=== PATIENT | male | born 1970 | race Caucasian/White ===

== ENCOUNTER 2021-06-01 10:39 | Inpatient (IN) ==
[2021-06-01] MEDS ORDERED: NITROGLYCERIN SL 0.4 MG TABLET SL ONE (10:40)
[2021-06-01] MEDS ORDERED: ONDANSETRON 4 MG/2 ML VIAL ONE (10:40)
[2021-06-01] MEDS ORDERED: MORPHINE 2 MG/1 ML SYRINGE ONE (10:40)
[2021-06-01] MEDS: NITROGLYCERIN SL 0.4 MG TABLET SL PRN ×2 (10:42→11:01)
[2021-06-01] MEDS ORDERED: HEPARIN 5,000 UNIT/1 ML VIAL ONE ×3 (10:43→11:22)
[2021-06-01] MEDS ORDERED: ONDANSETRON 4 MG/2 ML VIAL IV STA (10:51)
[2021-06-01] MEDS ORDERED: HEPARIN 5,000 UNIT/1 ML VIAL IV ONE (10:51)
[2021-06-01] MEDS ORDERED: LIDOCAINE 1% 20 ML VIAL ONE (10:59)
[2021-06-01] MEDS ORDERED: HEPARIN/NACL 0.9% 2 UNITS/ML 3,000 UNIT/1,500 ML BAG IV ONE (10:59)
[2021-06-01] MEDS ORDERED: MIDAZOLAM 2 MG/2 ML VIAL ONE (10:59)
[2021-06-01] MEDS ORDERED: fentaNYL 100 MCG/2 ML VIAL ONE (11:00)
[2021-06-01] MEDS ORDERED: TICAGRELOR 90 MG TABLET PO ONE (11:00)
[2021-06-01] MEDS ORDERED: DOCUSATE SODIUM 100 MG CAPSULE PO PRN (11:03)
[2021-06-01] MEDS ORDERED: NITROGLYCERIN DRIP 50 MG/250 ML BOTTLE IV ONE (11:03)
[2021-06-01] MEDS ORDERED: ALUMINUM/MAGNES/SIMETH MAX STR 30 ML UDCUP PO PRN (11:03)
[2021-06-01] MEDS ORDERED: MORPHINE 2 MG/1 ML SYRINGE IV PRN (11:03)
[2021-06-01] MEDS ORDERED: ACETAMINOPHEN 325 MG TABLET PO PRN (11:03)
[2021-06-01] MEDS ORDERED: ONDANSETRON 4 MG/2 ML VIAL IV PRN (11:03)
[2021-06-01 11:05] LABS: Basophils % 0.3 % (0.0-0.8); Eosinophils % 0.1 % (0.00-10.9); Hematocrit 46.3 VOL% (42.0-52.0); Hemoglobin 15.8 GM/DL (14.0-18.0); Immature Granulocytes % 0.5 %; Immature Granulocytes Absolute 0.05 #; Lymphocytes # 0.8 10*3/uL (1.4-4.0); Lymphocytes % 7.5 % (21.2-54.2); Mean Corpuscular HGB Conc 34.1 GM/DL (32-36); Mean Corpuscular Volume 84.2 FL (87-102); Mean Platelet Volume 10.8 FL (9.6-12.0); Monocytes % 6.5 % (1.7-12.7); Neutrophils % 85.1 % (38.7-73.9); Platelet Count 237 T/CUMM (130-400); Red Cell Distribution Width 12.5 % (9.3-17.3); White Blood Count 10.9 T/CUMM (4-12)
[2021-06-01 11:15] LABS: INR 1.1; PT Patient Result 12.8 SECS (10.5-12.0)
[2021-06-01] MEDS ORDERED: EPTIFIBATIDE IV ONE (11:25)
[2021-06-01 11:28] LABS: Albumin 4.2 G/DL (3.4-5.0); Bilirubin,Total 0.4 MG/DL (0.20-1.00); Calcium 9.6 MG/DL (8.5-10.1); Osmolality,Calculated 281.5 MOS/KG (273-304); Potassium 3.8 MMOL/L (3.5-5.1); Total Protein 7.8 G/DL (6.4-8.2)
[2021-06-01] MEDS ORDERED: SODIUM CHLORIDE 0.45% 1,000 ML IV SCH (11:30)
[2021-06-01] MEDS ORDERED: HEPARIN/NACL 0.9% 2 UNITS/ML 1,000 UNIT/500 ML BAG IV ONE (11:31)
[2021-06-01 11:49] VITALS: BP 109/77
[2021-06-01] MEDS: METOPROLOL SUCCINATE XL 25 MG TABLET PO SCH (15:13)
[2021-06-01] MEDS ORDERED: diphenhydrAMINE CAP 25 MG CAPSULE PO PRN (19:48)
[2021-06-01] MEDS: ROSUVASTATIN 20 MG TABLET PO SCH (20:19)
[2021-06-01] MEDS: TICAGRELOR 90 MG TABLET PO SCH (20:19)
[2021-06-01] MEDS ORDERED: METOPROLOL SUCCINATE XL 25 MG TABLET PO ONE (23:50)
[2021-06-02 01:12] LABS: Calcium 8.5 MG/DL (8.5-10.1); Osmolality,Calculated 277.5 MOS/KG (273-304); Potassium 3.7 MMOL/L (3.5-5.1)
[2021-06-02] MEDS ORDERED: MAGNESIUM SULF RIDER 1 GM/100 ML PREMIX IV ONE (02:00)
[2021-06-02 04:22] LABS: Basophils % 0.2 % (0.0-0.8); Eosinophils % 0.3 % (0.00-10.9); Hematocrit 47.1 VOL% (42.0-52.0); Hemoglobin 15.8 GM/DL (14.0-18.0); Immature Granulocytes % 0.3 %; Immature Granulocytes Absolute 0.04 #; Lymphocytes # 1.4 10*3/uL (1.4-4.0); Lymphocytes % 10.8 % (21.2-54.2); Mean Corpuscular HGB Conc 33.5 GM/DL (32-36); Mean Corpuscular Volume 84.9 FL (87-102); Mean Platelet Volume 10.7 FL (9.6-12.0); Monocytes % 8.9 % (1.7-12.7); Neutrophils % 79.5 % (38.7-73.9); Platelet Count 219 T/CUMM (130-400); Red Blood Count 5.55 MC/CUMM (3.8-5.5); Red Cell Distribution Width 12.8 % (9.3-17.3); White Blood Count 12.7 T/CUMM (4-12)
[2021-06-02 04:43] LABS: Calcium 9.4 MG/DL (8.5-10.1); Osmolality,Calculated 277.5 MOS/KG (273-304); Potassium 3.9 MMOL/L (3.5-5.1); Risk Ratio 4.24; VLDL Cholesterol 18.2 MG/DL
[2021-06-02] MEDS: PANTOPRAZOLE 40 MG TABLET PO SCH (08:59)
[2021-06-02] MEDS: METOPROLOL SUCCINATE XL 25 MG TABLET PO SCH (08:59)
[2021-06-02] MEDS: TICAGRELOR 90 MG TABLET PO SCH ×2 (09:00→20:51)
[2021-06-02] MEDS: ASPIRIN EC 81 MG TABLET PO SCH (09:00)
[2021-06-02 10:55] LABS: Barbiturates Screen,Urine Negative (Negative); Benzodiazepines Screen,Urine Negative (Negative); Cannabinoid Screen,Urine Negative (Negative); Opiate Screen,Urine Negative (Negative); Phencyclidine Screen,Urine Negative (Negative)
[2021-06-02] MEDS: ROSUVASTATIN 20 MG TABLET PO SCH (20:51)
[2021-06-03 04:01] LABS: Basophils % 0.3 % (0.0-0.8); Eosinophils # 0.1 10*3/uL (0.0-0.87); Eosinophils % 1.1 % (0.00-10.9); Hematocrit 49.1 VOL% (42.0-52.0); Hemoglobin 15.9 GM/DL (14.0-18.0); Immature Granulocytes % 0.5 %; Immature Granulocytes Absolute 0.05 #; Lymphocytes # 1.7 10*3/uL (1.4-4.0); Lymphocytes % 17.6 % (21.2-54.2); Mean Corpuscular HGB Conc 32.4 GM/DL (32-36); Mean Corpuscular Volume 87.1 FL (87-102); Mean Platelet Volume 10.8 FL (9.6-12.0); Monocytes % 11.5 % (1.7-12.7); Platelet Count 171 T/CUMM (130-400); Red Blood Count 5.64 MC/CUMM (3.8-5.5); Red Cell Distribution Width 12.8 % (9.3-17.3); White Blood Count 9.5 T/CUMM (4-12)
[2021-06-03 04:14] LABS: Calcium 9.2 MG/DL (8.5-10.1); Osmolality,Calculated 269.1 MOS/KG (273-304)
[2021-06-03] MEDS: METOPROLOL SUCCINATE XL 25 MG TABLET PO SCH (09:16)
[2021-06-03] MEDS: ASPIRIN EC 81 MG TABLET PO SCH (09:16)
[2021-06-03] MEDS: TICAGRELOR 90 MG TABLET PO SCH (09:16)
[2021-06-03] MEDS: PANTOPRAZOLE 40 MG TABLET PO SCH (09:16)
== END 2021-06-03 11:45 | disposition home or self-care (01) | DRG 247 ==
LOC: N.ED 10:39 → N.ICU 11:02
PROVIDERS: ADMIT Internal Medicine Cardiovascular Disease; ATTEND Internal Medicine Cardiovascular Disease
PROC: CLCCHCL (ICD-10-PCS; 2021-06-01 11:15)